=== PATIENT | female | born 1995 | race Caucasian/White ===

== ENCOUNTER 2025-06-26 11:22 | Outpatient (CLI) | payer OTHER ==
--- NOTE | 2025-06-26 12:28 | RADIOLOGY REPORT ---
EXAM: MR MRI LOWER EXTREMITY RIGHT knee INDICATION: PAIN IN RIGHT KNEE TECHNIQUE: Multiplanar and multisequence MR imaging of the right ankle was performed in the absence o f gadolinium contrast. COMPARISON: None FINDINGS: The medial and lateral menisci are intact. The cruciate ligaments are intact The collateral ligaments are intact The quadriceps and patellar tendons are intact No joint effusion The hyaline cartilage surfaces covering the patellofemoral joint are smooth IMPRESSION: 1. Normal MRI of the right knee joint
== END 2025-06-26 23:59 | disposition home or self-care (01) ==
LOC: MRI02 11:22
PROVIDERS: ATTEND Family Medicine
DX: M25.561 Pain in right knee (principal)
CPT/HCPCS: 73721